=== PATIENT | female | born 2000 | race African-American/Black ===

== ENCOUNTER 2019-02-20 16:03 | Observation (INO) | payer OTHER ==
[~2019-02-20] VITALS: Ht 157.5 cm; Wt 68.0 kg
[2019-02-20 17:27] LABS: CLARITY URINE CLOUDY (CLEAR); COLOR URINE YELLOW (YELLOW); KETONES URINE 1+ (NEGATIVE); LEUKOCYTE ESTERASE URINE 3+ (NEGATIVE); NITRITE URINE NEGATIVE (NEGATIVE); OCCULT BLOOD URINE 3+ (NEGATIVE); PH URINE 7.5 (4.5-8.0); PROTEIN URINE 2+ (NEGATIVE); SPECIFIC GRAVITY URINE 1.016 (1.005-1.030)
[2019-02-20] MEDS: LACTATED RINGERS 1,000 ML IV SCH ×3 (17:27→21:06)
[2019-02-20] MEDS ORDERED: CITRIC ACID/SODIUM CITRATE SOLN 30ML UDC PO NR (18:30)
[2019-02-20 19:19] LABS: BASOPHILS % 0.2 % (0.0-2.0); EOSINOPHILS % 0.5 % (0.0-5.0); MEAN CORPUSCULAR HEMOGLOBIN 26.2 pg (28.0-32.0); MEAN CORPUSCULAR VOLUME 78.5 fL (81.0-99.0); MEAN PLATELET VOLUME 8.9 fl (7.4-10.4); MONOCYTES % 6.8 % (2.0-8.0); NEUTROPHILS % 81.5 % (40.0-76.0); PLATELET 254 x1000/uL (130-400); RED BLOOD CELL COUNT 3.44 mill/uL (4.2-5.4); RED CELL DISTRIBUTION WIDTH 14.6 % (11.6-14.6)
[2019-02-20 19:26] LABS: CHLORIDE 105 mEq/L (98-107)
[2019-02-20] MEDS ORDERED: CEFAZOLIN 2,000 MG in DEXT 5% WATER 100 ML IV SCH (21:00)
[2019-02-20] MEDS ORDERED: ACETAMINOPHEN 500MG TABLET PO NR (21:00)
[2019-02-20] MEDS ORDERED: PREN1TAB78 MT (22:11)
== END 2019-02-20 22:45 | disposition home or self-care (01) ==
LOC: 8 EST LDRP 16:03 → INTOOBSV 16:03
PROVIDERS: ADMIT Obstetrics & Gynecology; ATTEND Obstetrics & Gynecology
DX: O26.892 Other specified pregnancy related conditions, second trimester (principal); R10.9 Unspecified abdominal pain; M54.9 Dorsalgia, unspecified; Z3A.27 27 weeks gestation of pregnancy; O99.89 Other specified diseases and conditions complicating pregnancy, childbirth and the puerperium
CPT/HCPCS: 36415; 80053; 81003; 85025; 96365; 99281; G0378; J0690; J7060; 96360; 96361

== ENCOUNTER 2019-03-22 14:20 | Observation (INO) | payer OTHER ==
[~2019-03-22] VITALS: Ht 157.5 cm; Wt 52.2 kg
[~2019-03-22 14:20] MED LIST: PREN1TAB78 MT
[2019-03-22 15:58] LABS: CLARITY URINE CLEAR (CLEAR); COLOR URINE YELLOW (YELLOW); KETONES URINE NEGATIVE (NEGATIVE); LEUKOCYTE ESTERASE URINE 1+ (NEGATIVE); NITRITE URINE POSITIVE (NEGATIVE); OCCULT BLOOD URINE NEGATIVE (NEGATIVE); PROTEIN URINE 1+ (NEGATIVE); SPECIFIC GRAVITY URINE 1.017 (1.005-1.030)
[2019-03-22] MEDS ORDERED: CEFAZOLIN 2,000 MG in DEXT 5% WATER 100 ML IV SCH (17:30)
== END 2019-03-22 18:30 | disposition home or self-care (01) ==
LOC: 8 EST A/PP 14:20 → 8 EST LDRP 17:03
PROVIDERS: ADMIT Specialist; ATTEND Specialist
DX: O26.899 Other specified pregnancy related conditions, unspecified trimester (principal); R10.30 Lower abdominal pain, unspecified; Z3A.00 Weeks of gestation of pregnancy not specified
CPT/HCPCS: 81003; 96365; 99281; G0378; J0690; J7060

== ENCOUNTER 2019-03-27 15:46 | Observation (INO) | payer OTHER | END 2019-03-27 18:37 | disposition home or self-care (01) | LOC: 8 EST LDRP 15:46 | PROVIDERS: ADMIT Obstetrics & Gynecology; ATTEND Obstetrics & Gynecology | DX: O36.8130 Decreased fetal movements, third trimester, not applicable or unspecified (principal); O42.913 Preterm premature rupture of membranes, unspecified as to length of time between rupture and onset of labor, third trimester; O62.9 Abnormality of forces of labor, unspecified; Z3A.30 30 weeks gestation of pregnancy | CPT/HCPCS: 76815; 76818; 99281; G0378 ==

== ENCOUNTER 2019-05-21 20:06 | Observation (INO) | payer MEDICAID, OTHER ==
[~2019-05-21] VITALS: Ht 157.5 cm; Wt 62.1 kg
== END 2019-05-21 22:00 | disposition home or self-care (01) ==
LOC: 8 EST LDRP 20:06
PROVIDERS: ADMIT Obstetrics & Gynecology; ATTEND Obstetrics & Gynecology
DX: O62.9 Abnormality of forces of labor, unspecified (principal); Z3A.38 38 weeks gestation of pregnancy
CPT/HCPCS: 99281; G0378